=== PATIENT | female | born 1990 ===

== ENCOUNTER 2018-09-12 14:44 | Emergency (ER) | payer MEDICAID ==
[2018-09-12 14:52] VITALS: PULSE 65; TEMP 99.1; O2SAT 100
[2018-09-12 15:46] LABS: BASO % 0.5 % (0.0-2.0); EOS # 0.1 K/uL (0.0-0.7); EOS % 1.7 % (0.0-4.0); LYMPH # 2.4 K/uL (1.0-4.3); LYMPH % 27.7 % (20.0-40.0); MEAN CELL VOLUME 86.9 fl (81.0-99.0); MEAN CORPUSCULAR HEMOGLOBIN 28.7 pg (27.0-31.0); MEAN PLATELET VOLUME 6.7 fl (7.2-11.7); MONO # 0.4 K/uL (0.0-0.8); MONO % 4.5 % (0.0-10.0); NEUT # 5.6 K/uL (1.8-7.0); NEUT % 65.6 % (50.0-75.0); NRBC % 0.1 % (0.0-0.0); RBC 4.16 Mil/uL (3.80-5.20); RED CELL DISTRIBUTION WIDTH 14.2 % (11.5-14.5); WHITE BLOOD COUNT 8.5 K/uL (4.8-10.8)
[2018-09-12 16:00] LABS: ALB/GLOB RATIO 1.1 (1.0-2.1); ALBUMIN 3.8 g/dL (3.5-5.0); ALT/SGPT 20 U/L (9-52); AST/SGOT 23 U/L (14-36); BLOOD UREA NITROGEN 11 mg/dl (7-17); CALCIUM 9.1 mg/dL (8.4-10.2); GFR NON-AFRICAN AMERICAN > 60
--- NOTE | 2018-09-12 16:24 | ED PDOC ---
HPI: Abdomen Time Seen by Provider: 09/12/18 16:22 Chief Complaint (Nursing): Abdominal Pain Chief Complaint (Provider): abdominal pain History Per: Patient (27 y/o female 6 week gestation with lower abdominal pain ongoing. Patient seen at [facility] and advised to f/u for beta hcg to r/o ectopic. States her pelvic us at that time showed gestational sac with no yolk sac and pole. beta hcg 9500 at that time. Patient states she f/u with countersinker balance screw hole but no bloodwork or exam done and is here for bloodwork and re-evaluation.) Past Medical History Reviewed: Historical Data, Nursing Documentation, Vital Signs Vital Signs: Last Vital Signs Temp 99.1 F 09/12/18 14:48 Pulse 65 09/12/18 14:48 Resp 16 09/12/18 14:48 BP 116/61 09/12/18 14:48 Pulse Ox 100 09/12/18 14:48 - Surgical History Surgical History: Cholecystectomy - Family History Family History: States: No Known Family Hx - Immunization History Hx Tetanus Toxoid Vaccination: No Hx Influenza Vaccination: No Hx Pneumococcal Vaccination: No - Allergies Allergies/Adverse Reactions: Allergies Allergy/AdvReac Type Severity Reaction Status Date / Time No Known Allergies Allergy Verified 09/12/18 14:47 Review of Systems ROS Statement: Except As Marked, All Systems Reviewed And Found Negative Physical Exam - Reviewed Nursing Documentation Reviewed: Yes Vital Signs Reviewed: Yes - Physical Exam Appears: Positive for: Well, Non-toxic, No Acute Distress Head Exam: Positive for: ATRAUMATIC, NORMAL INSPECTION, NORMOCEPHALIC Skin: Positive for: Normal Color, Warm, DRY Eye Exam: Positive for: EOMI, Normal appearance, PERRL ENT: Positive for: Normal ENT Inspection Neck: Positive for: Normal, Painless ROM Cardiovascular/Chest: Positive for: Regular Rate, Rhythm Respiratory: Positive for: CNT, Normal Breath Sounds Gastrointestinal/Abdominal: Positive for: Normal Exam, Soft Back: Positive for: Normal Inspection Extremity: Positive for: Normal ROM Neurologic/Psych: Positive for: Alert, Oriented - Laboratory Results Result Diagrams: 09/12/18 15:30 09/12/18 15:30 - ECG O2 Sat by Pulse Oximetry: 100 - Progress ED Course And Treament: us pelvic: IMPRESSION: Six weeks 3 days live intrauterine gestation. Gestational concordance documented. Complex solid and cystic right adnexal mass. Hemorrhagic/debris laden cyst is the most likely consideration. Disposition - Clinical Impression Clinical Impression: Right ovarian cyst, Threatened miscarriage - Patient ED Disposition Is Patient to be Admitted: No - Disposition Disposition: Routine/Home Disposition Time: 17:42 Condition: STABLE Instructions: Ovarian Cysts, Threatened Miscarriage (DC)
--- NOTE | 2018-09-12 16:35 | US ---
Date of service: 09/12/2018 PROCEDURE: Obstetrical ultrasound HISTORY: R/O ECTOPIC COMPARISON: None TECHNIQUE: Standard protocol for this study/examination. FINDINGS: LMP: 07/27/2018 Prior examinations from the current : None. TECHNIQUE: Real-time 2D imaging, duplex and color Doppler. FINDINGS: Cardiac activity: Present Rate: One hundred twenty-eight BPM Measurements: Hawthorne rump length: 0.63 cm Gestational age based on CRL 6 weeks 3 days Gestational age 6 weeks 3 days based on gestational sac measurement 0.95 cm Gestational age derived from LMP: 6 weeks 5 days OLIVA based on LMP: 05/03/2019 OLIVA based on biometry: 05/05/2019 Gestational concordance documented Yolk sac identified Cervix: No Cervical abnormalities: Negative examination for cervical dilatation or effacement. Closed cervix measuring 4.64 cm Subchorionic hemorrhage: None UTERUS: 6.3 x 7.1 x 10.5 cm. ADNEXA: Right: 4.1 x 4.7 x 6.4 cm. Complex solid and cystic mass in the right ovary. This measures 3 x 2.1 x 4.2 cm. Normal Doppler arterial waveform documented. Left: 2.3 x 1.2 x 4.0 cm. Normal Doppler arterial waveform documented Fluid in the cul-de-sac: None IMPRESSION: Six weeks 3 days live intrauterine gestation. Gestational concordance documented. Complex solid and cystic right adnexal mass. Hemorrhagic/debris laden cyst is the most likely consideration.
[2018-09-12 17:08] LABS: SQUAMOUS EPITHIAL 4 /hpf (0-5); URINE BILIRUBIN NEGATIVE (NEGATIVE); URINE BLOOD NEGATIVE (NEGATIVE); URINE CLARITY CLOUDY (Clear); URINE COLOR YELLOW (YELLOW); URINE GLUCOSE (UA) NEG (Normal); URINE LEUKOCYTE ESTERASE NEG Leu/uL (Negative); URINE PROTEIN 30 mg/dL (NEGATIVE); URINE UROBILINOGEN 0.2-1.0 mg/dL (0.2-1.0)
[2018-09-12 18:43] VITALS: BP 104/52; RESP 18
== END 2018-09-12 18:44 | disposition home or self-care (01) ==
LOC: H.ER 14:44
DX: O20.0 Threatened abortion (principal); Z3A.01 Less than 8 weeks gestation of pregnancy; N83.201 Unspecified ovarian cyst, right side